=== PATIENT | male | born 1965 | race Caucasian/White ===

== ENCOUNTER 2016-06-04 09:48 | Outpatient (CLI) | payer OTHER | END 2016-06-04 09:49 | disposition home or self-care (01) | DX: G47.33 Obstructive sleep apnea (adult) (pediatric) (principal) ==

== ENCOUNTER 2016-08-20 08:51 | Outpatient (CLI) | payer OTHER | END 2016-08-20 08:52 | disposition home or self-care (01) | DX: G47.33 Obstructive sleep apnea (adult) (pediatric) (principal) ==

== ENCOUNTER 2017-07-22 15:25 | Outpatient (CLI) | payer BC | END 2017-07-22 15:26 | disposition home or self-care (01) | LOC: SC 15:25 | PROVIDERS: ATTEND Nurse Practitioner Family | DX: G47.33 Obstructive sleep apnea (adult) (pediatric) (principal) | CPT/HCPCS: 99212; 99214 ==

== ENCOUNTER 2018-05-23 08:53 | Outpatient (CLI) | payer BC | END 2018-05-23 08:54 | disposition home or self-care (01) | LOC: RT 08:53 | PROVIDERS: ATTEND Internal Medicine Gastroenterology | DX: E11.9 Type 2 diabetes mellitus without complications (principal); I10 Essential (primary) hypertension | CPT/HCPCS: 93005 ==

== ENCOUNTER 2018-06-18 08:29 | Outpatient (CLI) | payer BC ==
--- NOTE | 2018-06-18 12:06 | XRAY Report ---
Reason: RIGHT KNEE,SWELLING PAIN Procedure Date: 06/18/2018 Accession Number: [id number] / [id number] Procedure: XR - Knee 3 View RT CPT Code: FULL RESULT: EXAM: RIGHT KNEE RADIOGRAPHY EXAM DATE: 06/18/2018 08:44 AM. CLINICAL HISTORY: Right knee, swelling pain. COMPARISON: ANKLE 3 VIEW BILAT 10/26/2015 4:03 PM. TECHNIQUE: 3 views. FINDINGS: Bones: Normal. No fractures or bone lesions. Joints: There are mild degenerative changes predominantly of the medial weightbearing compartment. No joint effusion or dislocation. Soft Tissues: Soft tissue swelling is noticed anterior to the patella. IMPRESSION: Mild degenerative changes. RADIA
== END 2018-06-18 08:30 | disposition home or self-care (01) ==
LOC: DI 08:29
PROVIDERS: ATTEND Physician Assistant Medical
DX: M17.11 Unilateral primary osteoarthritis, right knee (principal); M25.461 Effusion, right knee

== ENCOUNTER 2018-12-03 16:15 | Outpatient (CLI) | payer BC ==
--- NOTE | 2018-12-03 17:49 | SLEEP CARE CONSULTATION ---
Information from patient questionnaire entered by Luna Mckay. I have reviewed and concur with the information entered by Luna Mckay. This document represents the service I personally performed and the decisions made by me, Dulce Reed, RN, MSN, INFORMATION RECEPTIONIST. History of Present Illness Previous diagnosis: Very Severe, Obstructive Sleep Apnea-Hypopnea Syndrome AHI: 74.2 Reason for CPAP/BiPAP follow up: annual Equipment type: CPAP Equipment obtained from: [facility] (having problems getting supplies and would like to transfer) Mask style: Nasal pillows Mask brand: Resmed Backup mask available: No Last cushion change: 3 months CPAP Compliance Data - Data Reviewed with Patient Average duration of nightly device use: 8.2 Compliance rate %: 100 (180) Current pressure setting (cmH2O): 10-15 Average residual AHI: 0.3 Average large leak: 1.4 liters/minute Subjective Patient concerns: reports: condensation in mask/hose (rare), nasal congestion (reports runny nose for about a half hour after using CPAP ). denies: aerophagia, mask discomfort, air blowing in eyes, mask leak noise, dry mouth, nose, throat, epistaxis Observed to snore while using device: No On therapy, patient: reports: sleeping better, awakening more refreshed, being more awake and alert during the day, more rested overall. denies: drowsiness while driving Initial [place] Sleepiness Scale score: 18 Current [place] Sleepiness Scale score: 2 Allergies and Home Medications Known drug allergies: No Home medication list reviewed: Yes Allergy and home medication list: Lisinopril 40mg tab one daily Nasacort Allergy 24HR 55MCG/ACT One stray intranasally daily Chlorthalidone 25mg tab one daily QVAR 40MCG/ACT One puff inhaled daily ProAir HFA 108 (90 base) Two puffs every 4-6h PRN Montelukast Sodium 10mg tab one daily Clotrimzole 10mg One frieda five times daily PRN Loratadine 10mg tab one daily Atorvastatin Calcium 10mg tab one daily Physical Exam Blood Pressure: 120/80 Cuff size: long Heart Rate: 78 O2 Saturation: 98 Height: 5 ft 7 in Weight (kg): 123.377 kg Body Mass Index: 42.5 BMI Classification: Class 3 Impression and Plan 1. Obstructive Sleep Apnea-Hypopnea Syndrome, very severe, with good treatment compliance and good apnea control. On CPAP therapy, the patient has better sleep quality and is more rested overall. For his rhinorrhea after use, I advised him to raise the humidity as this could be a response from dryness of nose. He can also reduce heat of hose as shown on sample device and adjust as needed with rationale discussed. For his supply concerns, I informed him that he could transfer to new supply company. I will have my damage prevention coordinator inform him of his options. A DWO transfer prescription will be completed. If further supply problems he can transfer again. I praised his weight loss. I discussed how continued significant weight loss can reduce his CPAP pressure requirements. I showed him how he is using the highest of his auto pressure range and thus present range should accommodate some weight loss. I discussed symptom to report for further pressure adjustment . We looked at the BMI chart and discussed his goals for weight loss for improved health and reduced arthritic pain. He is also aware how continued weight loss can reduce his blood pressure and hopes to reduce his medication when goal weight obtained. Patient's apnea severity and rationale for treatment to reduce apnea, improve sleep quality and reduce cardiovascular and cerebrovascular events was reviewed. I also reviewed the benefit of consistent device use of CPAP for hypertension, gastric reflux, depression. He is concerned about his brother out of state having apnea and means to get a CPAP device. I gave him a [facility] Snoring and sleep apnea pamphlet to send to him of how to reach out to his provider for care. I also explained that most insurances will cover most of CPAP cost, dependent upon deductible. Some CPAP companies used to have assistance programs for those without insurance but I have not researched as no need last few years. * Continue CPAP pressure at 10-15 cmH2O * Change humidity / heated hose * Continue weight loss. * Transfer to new DME * Notify me if snoring with mask or feeling that the pressure is too much or too little * Return for follow up in 1 year, or sooner if concerns arise I spent 100% of this 35 minute visit face to face with the patient with greater than 50% of this was spent time counseling the patient and coordination of care.
[2018-12-03 17:50] VITALS: BP 120/80
== END 2018-12-03 16:16 | disposition home or self-care (01) ==
LOC: SC 16:15
PROVIDERS: ATTEND Nurse Practitioner Family
DX: G47.33 Obstructive sleep apnea (adult) (pediatric) (principal)
CPT/HCPCS: 99212; 99214

== ENCOUNTER 2019-12-16 09:12 | Outpatient (CLI) | payer OTHER ==
--- NOTE | 2019-12-16 09:43 | SLEEP CARE CONSULTATION ---
Information from patient questionnaire entered by Luna Mckay. I have reviewed and concur with the information entered by Luna Mckay. This document represents the service I personally performed and the decisions made by , Adriana Alarcon ARNP. History of Present Illness Service Date and Time: 12/16/2019911 Previous diagnosis: Very Severe, Obstructive Sleep Apnea-Hypopnea Syndrome AHI: 74.2 (in 2013) Reason for follow up: annual (last seen 2018) Equipment type: CPAP Equipment obtained from: [facility] (getting supplies as needed) Mask style: Nasal pillows Mask brand: Resmed Backup mask available: No (save one using now when gets new supplies) Last cushion change: 2 weeks ago Prior sleep studies: Yes Year and [facility] Type of Sleep Study: Polysomnography HPI additional information: JANELLE CULLEN was diagnosed to have very severe, AHI 74.2 in 2013, obstructive sleep apnea-hypopnea syndrome and returned today for CPAP therapy annual follow-up. CPAP Compliance Data - Data Reviewed with Patient Average duration of nightly device use: 8.5 Compliance rate %: 100 (180 days) Current pressure setting (cmH2O): 10-15 Humidity settin Average residual AHI: 0.2 Subjective Patient concerns: reports: nasal congestion (has seasonal allergies in the morning has some congestion), dry mouth, nose, throat (sometimes, but not really bad), other (Broken main power). denies: aerophagia, mask discomfort, air blowing in eyes, mask leak noise, condensation in mask/hose, epistaxis Observed to snore while using device: No Current pressure setting perceived as: comfortable On therapy, patient: reports: sleeping better, awakening more refreshed, being more awake and alert during the day, more rested overall. denies: drowsiness while driving Initial [place] Sleepiness Scale score: 18 (in 2013) Current [place] Sleepiness Scale score: 5 Allergies and Home Medications Drug allergies reviewed: Yes (NKDA) Home medication list reviewed: Yes (med changes as listed) Allergy and home medication list: cetirizine 10 mg daily for allergies tizanidine 2 mg, prn prazosin 2 tablet nightly for nightmares, last 6 months Review of Systems Review of systems same as previous: Yes (no changes) Cardiovascular: reports: high blood pressure Physical Exam Heart Rate: 81 O2 Saturation: 96 Height: 5 ft 7 in Weight: 259 lb 9.6 oz Body Mass Index: 40.6 BMI Classification: Morbidly Obese Impression and Plan 1. Obstructive Sleep Apnea-Hypopnea Syndrome, very severe, with good treatment compliance and good apnea control. On CPAP therapy, there is improved sleep quality and feels more rested overall. Patient's apnea severity and rationale for treatment to reduce apnea, improve sleep quality and reduce cardiovascular and cerebrovascular events was reviewed. I also reviewed the benefit of consistent device use of CPAP for hypertension, gastric reflux, and depression. Patient states the power button on his machine is not working, he has to unplug his device to turn it off. He states at his last annual visit he was told he could update his machine in a year. His insurance is changing at the end of the month because he lost his job due to the pandemic and he would like to use up his benefits before that happens. We discussed that he would need to come in for another compliance follow up on the new machine to make sure it is working appropriately, he voiced understanding and agreement with plan of care. Continue auto CPAP pressure at 10-15 cm H2O. Notify me if snoring with the mask or feeling that the pressure is too much or too little. Attempt to lose weight. Update CPAP machine Return for follow-up in 1-2 months, or sooner if concerns arise. Visit Type: In Office Time Spent with Patient (minutes): 20 Provider Statement: I spent 100% of the Face to Face Visit with the patient with greater than 50% spent counseling the patient and coordination of care.
== END 2019-12-16 09:13 | disposition home or self-care (01) ==
LOC: SC 09:12
PROVIDERS: ATTEND Nurse Practitioner Family
DX: G47.33 Obstructive sleep apnea (adult) (pediatric) (principal); E66.01 Morbid (severe) obesity due to excess calories; Z68.41 Body mass index [BMI] 40.0-44.9, adult
CPT/HCPCS: 99212; 99213

== ENCOUNTER 2022-03-02 10:38 | Day surgery (SDC) | payer OTHER ==
--- NOTE | 2022-03-02 11:13 | ANESTHESIA ---
Pre-Anesthesia VS, & Labs Height: 5 ft 7 in Weight (kg): 119.2 kg Body Mass Index: 41.1 BMI Classification: Morbidly Obese - NPO >8 hours - Lab Results Lab results reviewed: Yes - Diagnosis hx colon polyps (Kelsey Argueta) - Procedure colonoscopy (Kelsey Argueta) Vital Signs: Temp Pulse Resp BP Pulse Ox O2 Flow Rate 36.7 C 86 20 154/92 H 96 03/02/22 10:57 03/02/22 10:57 03/02/22 10:57 03/02/22 10:57 03/02/22 10:57 Home Medications and Allergies lisinopriL [Lisinopril] 40 mg PO DAILY 06/20/13 Beclomethasone 80 Mcg [Qvar 80] 1 inh INH DAILY PRN 02/16/16 Montelukast Sodium 10 mg PO DAILY 02/16/16 Aspirin [Adult Aspirin] 81 mg PO DAILY 05/22/18 Atorvastatin Calcium 10 mg PO QPM 05/22/18 Chlorthalidone 25 mg PO DAILY 05/22/18 Cholecalciferol (Vitamin D3) [Vitamin D] 2,000 unit PO DAILY 05/22/18 Ibuprofen 400 - 600 mg PO TID 05/22/18 [place]-3/Dha/Epa/Fish Oil [Fish Oil 1,000 mg Softgel] 1 each PO BID 05/22/18 Allergies/Adverse Reactions: Allergies Allergy/AdvReac Type Severity Reaction Status Date / Time No Known Drug Allergies Allergy Verified 01/20/13 13:38 Anes History & Medical History - Anesthetic History Anesthesia Complications: reports: No previous complications Family history of Anesthesia Complications: Denies Family history of Malignant Hyperthermia: Denies - Medical History Cardiovascular: reports: Hypertension, High cholesterol Pulmonary: reports: Asthma, Sleep apnea, CPAP use Gastrointestinal: reports: Colon polyps, Other Urinary: reports: None Neuro: reports: None Musculoskeletal: reports: Chronic back pain Endocrine/Autoimmune: reports: None Blood Disorders: reports: None Skin: reports: None Smoking Status: Current some day smoker History of Cancer?: No - Surgical History General: reports: Colonoscopy Eyes Ears Nose Throat (EENT): reports: Tonsil/Adenoidectomy Exam General: Alert, Oriented x3, Cooperative Dental: WNL Mouth Openin Fingerbreadth Neck Mobility: Normal Mallampati classification: II Thyromental Distance: 4-6 cm Respiratory: Lungs clear, Normal breath sounds, No respiratory distress Cardiovascular: Regular rate Neurological: Normal speech Mental/Cognitive Status: Alert/Oriented X3, Normal for patient Cognitive Status: Within normal limits Plan Anesthesia Type: Total IV Consent for Procedure(s) Verified and Reviewed: Yes Code Status: Attempt Resuscitation ASA classification: 3-Severe systemic disease Is this case an emergency?: No
[2022-03-02] MEDS ORDERED: LACTATED RINGERS 1,000 ML IV ONE ×2 (11:17→13:18)
[2022-03-02] MEDS ORDERED: MIDAZOLAM 2 MG/2 ML VIAL ONE (11:34)
[2022-03-02] MEDS ORDERED: PROPOFOL 500 MG/50 ML 500 MG/50 ML VIAL ONE (11:35)
[2022-03-02] MEDS ORDERED: KETAMINE 500 MG/10 ML VIAL ONE (12:27)
--- NOTE | 2022-03-02 12:37 | HISTORY & PHYSICAL EXAMINATION ---
Chief Complaint - Chief Complaint Chief Complaint: here for colon cancer screening History of Present Illness - History Obtained From Records Reviewed: yes History obtained from: pt Exam Limitations: none - History of Present Illness HPI Comment/Other: history large colon polyps. no gi problems. here for surveillance colonoscopy History - Past Medical History Cardiovascular: reports: Hypertension, High cholesterol Respiratory: reports: Asthma, Sleep apnea, CPAP use Neuro: reports: None Endocrine/Autoimmune: reports: None GI: reports: Colon polyps, Other : reports: None HEENT: reports: Chronic vision loss, Other Psych: reports: Anxiety, Post traumatic stress disorder, Claustrophobia Musculoskeletal: reports: Chronic back pain Derm: reports: None MRSA Hx?: No - Past Surgical History General: reports: Colonoscopy HEENT: reports: Tonsil/Adenoidectomy - POLST Patient has POLST: No Meds/Allgy - Home Medications Home Medications: Ambulatory Orders Medication Instructions Recorded Confirmed Albuterol [Ventolin Hfa] 2 puffs INH Q4H PRN #1 inhaler 06/20/13 03/02/22 lisinopriL [Lisinopril] 40 mg PO DAILY 06/20/13 03/02/22 Beclomethasone 80 Mcg [Qvar 80] 1 inh INH DAILY PRN 02/16/16 03/02/22 Montelukast Sodium 10 mg PO DAILY 02/16/16 03/02/22 Aspirin [Adult Aspirin] 81 mg PO DAILY 05/22/18 03/02/22 Atorvastatin Calcium 10 mg PO QPM 05/22/18 03/02/22 Chlorthalidone 25 mg PO DAILY 05/22/18 03/02/22 Cholecalciferol (Vitamin D3) 2,000 unit PO DAILY 05/22/18 03/02/22 [Vitamin D] Ibuprofen 400 - 600 mg PO TID 05/22/18 03/02/22 [place]-3/Dha/Epa/Fish Oil [Fish Oil 1 each PO BID 05/22/18 03/02/22 1,000 mg Softgel] - Allergies Allergies/Adverse Reactions: Allergies Allergy/AdvReac Type Severity Reaction Status Date / Time No Known Drug Allergies Allergy Verified 01/20/13 13:38 Review of Systems - Other Findings Other Findings: 10 pt ros as above otherwise unremarkable Exam - Vital Signs Reviewed Vital Signs: Yes Vital Signs: Vital Signs x48h Temp Pulse Resp BP Pulse Ox 03/02/22 10:57 36.7 C 86 20 154/92 H 96 - Physical Exam General Appearance: positive: No acute distress, Alert Eyes Bilateral: positive: PERRL, EOMI ENT: positive: No signs of dehydration Neck: positive: No JVD, Trachea midline Respiratory: positive: No respiratory distress, Breath sounds nml Cardiovascular: positive: Regular rate & rhythm Abdomen: positive: Non-tender, No distention Neurologic/Psychiatric: positive: Oriented x3 Conclusion/Plan - Problem List (1) History of adenomatous polyp of colon Conclusion/Plan: plan colonoscopy. parq held and consent obtained - Lab Results Lab results reviewed: Yes
[2022-03-02] MEDS ORDERED: PROPOFOL 200 MG/20 ML VIAL IVP ONE ×2 (12:41→12:59)
[2022-03-02 13:40] VITALS: BP 141/91
--- NOTE | 2022-03-02 13:49 | ANESTHESIA POST OP EVALUATION ---
Anesthesia Post Eval - Post Anesthesia Eval Vitals: Last Vital Signs Temp 36.8 C 03/02/22 13:39 Pulse 71 03/02/22 13:39 Resp 16 03/02/22 13:39 BP 141/91 H 03/02/22 13:39 Pulse Ox 95 03/02/22 13:39 O2 Flow Rate CV Function Including HR & BP: Stable Pain Control: Satisfactory Nausea & Vomiting: Negative Mental Status: Baseline Respiratory Status: Airway Patent Hydration Status: Satisfactory Anesthesia Complications: None
== END 2022-03-02 10:39 | disposition home or self-care (01) ==
LOC: SDS 10:38
PROVIDERS: ATTEND Surgery
PROC: 0DBP8ZX Excision of Rectum, Via Natural or Artificial Opening Endoscopic, Diagnostic (ICD-10-PCS; 2022-03-02)
PROC: 0DBM8ZX Excision of Descending Colon, Via Natural or Artificial Opening Endoscopic, Diagnostic (ICD-10-PCS; 2022-03-02)
PROC: 0DBK8ZX Excision of Ascending Colon, Via Natural or Artificial Opening Endoscopic, Diagnostic (ICD-10-PCS; principal; 2022-03-02 12:15)
DX: Z12.11 Encounter for screening for malignant neoplasm of colon (principal); K62.1 Rectal polyp; K57.30 Diverticulosis of large intestine without perforation or abscess without bleeding; D12.2 Benign neoplasm of ascending colon; D17.79 Benign lipomatous neoplasm of other sites; I10 Essential (primary) hypertension; J45.909 Unspecified asthma, uncomplicated; G47.30 Sleep apnea, unspecified; E66.01 Morbid (severe) obesity due to excess calories; Z68.41 Body mass index [BMI] 40.0-44.9, adult
CPT/HCPCS: 45380; 45385; J7120

== ENCOUNTER 2022-05-15 14:48 | Outpatient (CLI) | payer OTHER ==
[2022-05-15 15:18] VITALS: BP 138/90
--- NOTE | 2022-05-15 15:18 | SLEEP CARE CONSULTATION ---
Information from patient questionnaire entered by Danica Leary. I have reviewed and concur with the information entered by Danica Leary. This document represents the service I personally performed and the decisions made by me, Adriana Alarcon ARNP. History of Present Illness Service Date and Time: 05/15/2022 1448 Previous diagnosis: Very Severe, Obstructive Sleep Apnea-Hypopnea Syndrome AHI: 74.2 (in 2013) Reason for follow up: annual (LAST SEEN 11/2019) Equipment type: CPAP (RESMED Airsense 10; s/u 05/2015; NEED SD CARD FOR DOWNLOAD) Equipment obtained from: [facility] (getting supplies as needed) Mask style: Nasal pillows Backup mask available: No (will keep old mask when replaced) Last cushion change: 3 weeks Prior sleep studies: Yes Year and Where: 2013 - [facility] Sleep HPI additional information: JANELLE CULLEN was diagnosed to have very severe, AHI 74.2, obstructive sleep apnea-hypopnea syndrome and returned today for CPAP therapy annual follow-up. Sleep Study - Results Prior sleep studies: Yes [facility] CP[facility] Compliance Data - Data Reviewed with Patient Average duration of nightly device use: 7 hours 43 minutes Compliance rate %: 98 (180/180 days used; 02/02/2021-07/31/2021) Current pressure setting (cmH2O): 10-15 Average residual AHI: 0.2 Central apnea: 0.0 Obstructive apnea: 0.2 Subjective Patient concerns: denies: aerophagia, mask discomfort, air blowing in eyes, mask leak noise, condensation in mask/hose, nasal congestion, dry mouth, nose, throat, epistaxis Observed to snore while using device: No Current pressure setting perceived as: comfortable On therapy, patient: reports: sleeping better, awakening more refreshed, being more awake and alert during the day, more rested overall. denies: drowsiness while driving Initial [place] Sleepiness Scale score: 18 (in 2013) Current [place] Sleepiness Scale score: 4 (05/15/22) Allergies and Home Medications Drug allergies reviewed: Yes (NKDA) Home medication list reviewed: Yes (Prazosin 5mg; Amlodipine 5 mg) Review of Systems Review of systems same as previous: Yes (night terrors, taking prazosin now) Physical Exam Vital signs obtained and entered by: DANICA Damon MA Blood Pressure: 138/90 (LEFT ARM) Cuff size: regular Heart Rate: 77 O2 Saturation: 98 Height: 5 ft 7 in Weight: 274 lb 6.4 oz Body Mass Index: 43.0 BMI Classification: Morbidly Obese Impression and Plan 1. Obstructive Sleep Apnea-Hypopnea Syndrome, very severe, with good treatment compliance and good apnea control. On CPAP therapy, the patient has better sleep quality and is more rested overall. Janelle will bring in his SD card tomorrow to get a more current therapy report. Patient has significant improvement of their sleep apnea and are satisfied with current CPAP therapy. Patient has a ResMed Airsense 10 that is giving him a message that the motor is wearing out. It was last update 05/2015. The patients CPAP is over 5 years old and of reasonable use. Thus, the CPAP will be updated. A DWO prescription will be made. Compliance guidelines for new device and follow up discussed. Patient's apnea severity and rationale for treatment to reduce apnea, improve sleep quality and reduce cardiovascular and cerebrovascular events was reviewed. Patient denies problems with oral dryness, nasal congestion, epistaxis, skin irritation or aerophagia. I also reviewed the benefit of consistent device use of CPAP for hypertension, gastric reflux and depression. 2. Obesity, unspecified. Currently patients BMI is 43.0. Obesity increases the risk of apnea, CPAP pressure requirements and overall health risks especially cardiovascular and diabetes. Thus patient is advised to lose weight. * Continue auto CPAP pressure at 10-15 cmH2O * Update supplies * Notify me if snoring with mask or feeling that the pressure is too much or too little * Attempt to lose weight * Call this office if any problems using CPAP * Return for follow up one month after obtaining new device, or sooner if concerns arise Counseling Topics: Spare mask, Weight loss health impact Prescriptions: Auto CPAP (update machine), Device supplies Visit Type: In Office Time Spent with Patient (minutes): 20 Provider Statement: I spent 100% of the Face to Face Visit with the patient with greater than 50% spent counseling the patient and coordination of care.
== END 2022-05-15 14:49 | disposition home or self-care (01) ==
LOC: SC 14:48
PROVIDERS: ATTEND Nurse Practitioner Family
DX: G47.33 Obstructive sleep apnea (adult) (pediatric) (principal); E66.01 Morbid (severe) obesity due to excess calories; Z68.41 Body mass index [BMI] 40.0-44.9, adult
CPT/HCPCS: 99212; 99213

== ENCOUNTER 2022-09-05 15:47 | Outpatient (CLI) | payer OTHER ==
--- NOTE | 2022-09-05 15:59 | Sleep Patient Instructions ---
Sleep Center Visit Summary - Patient Visit Information Reason for Visit: First compliance with new device follow up for CPAP therapy - Patient Instructions Additional Instructions: You were here for follow up of CPAP therapy. You will be continued on CPAP therapy with pressure at 10 cmH2O. You should follow up with sleep care in 12 months. You may contact us sooner for any questions or concerns. - Clinic Information Contact: [facility] [address] [place] [id number] [email or web address] T: [phone]
--- NOTE | 2022-09-05 16:10 | SLEEP CARE CONSULTATION ---
Information from patient questionnaire entered by Alice Leary. I have reviewed and concur with the information entered by Alice Leary. This document represents the service I personally performed and the decisions made by me, Adriana Alarcon ARNP. History of Present Illness Service Date and Time: 09/05/2022 1547 Previous diagnosis: Very Severe, Obstructive Sleep Apnea-Hypopnea Syndrome AHI: 74.2 (in 2013) Reason for follow up: first compliance after device update Equipment type: CPAP (RESMED Airsense 11; s/u 04/2022; NEED SD CARD FOR DOWNLOAD) Equipment obtained from: [employer] (getting supplies as needed) Mask style: Nasal pillows Backup mask available: No (will keep old mask when replaced) Last cushion change: 2 weeks Prior sleep studies: Yes Year and Where: 2013 - [facility] HPI additional information: JANELLE CULLEN was diagnosed to have very severe, AHI 74.2, obstructive sleep apnea-hypopnea syndrome and returned today for CPAP therapy first compliance after updating device follow-up. Sleep Study - Results Prior sleep studies: Yes Year and Where: 2013 - [facility] CPAP Compliance Data - Data Reviewed with Patient Average duration of nightly device use: 8 hours 23 minutes Compliance rate %: 99 (90/90 days used) Current pressure setting (cmH2O): 10 Average residual AHI: 0.8 Central apnea: 0.1 Obstructive apnea: 0.4 Hypopnea: 0.3 Average large leak: 1.7 L/min Subjective Patient concerns: denies: aerophagia, mask discomfort, air blowing in eyes, mask leak noise, condensation in mask/hose, nasal congestion, dry mouth, nose, throat, epistaxis Observed to snore while using device: Yes (at first with new machine) Current pressure setting perceived as: comfortable On therapy, patient: reports: sleeping better, awakening more refreshed, being more awake and alert during the day, more rested overall. denies: drowsiness while driving Initial [place] Sleepiness Scale score: 18 (in 2013) Current [place] Sleepiness Scale score: 1 (09/05/22) Allergies and Home Medications Known drug allergies: No Drug allergies reviewed: Yes Home medication list reviewed: Yes (no changes) Allergy and home medication list: Allergies No Known Drug Allergies Allergy (Verified 09/04/22 14:59) Review of Systems Review of systems same as previous: Yes (no changes) Physical Exam Vital signs obtained and entered by: ALICE Damon MA Blood Pressure: 130/82 (LEFT ARM) Cuff size: long Heart Rate: 73 O2 Saturation: 96 Height: 5 ft 7 in Weight: 276 lb Body Mass Index: 43.2 BMI Classification: Morbidly Obese Impression and Plan 1. Obstructive Sleep Apnea-Hypopnea Syndrome, very severe, with good treatment compliance and good apnea control. On CPAP therapy, the patient has better sleep quality and is more rested overall. Patient has significant improvement of their sleep apnea and is satisfied with current CPAP therapy. Patient denies problems with oral dryness, nasal congestion, epistaxis, skin irritation or aerophagia. Patient's apnea severity and rationale for treatment to reduce apnea, improve sleep quality and reduce cardiovascular and cerebrovascular events was reviewed. I also reviewed the benefit of consistent device use of CPAP for hypertension, gastric reflux and depression. Patient states he is moving to [place] in October. We discussed what he needs to do to transfer his care down there once he has established in the area. He voiced understanding and agreement to plan of care. 2. Obesity, unspecified. Currently patients BMI is 43.2. Obesity increases the risk of apnea, CPAP pressure requirements and overall health risks especially cardiovascular and diabetes. Thus patient is advised to lose weight. * Continue CPAP pressure at 10 cmH2O * Notify me if snoring with mask or feeling that the pressure is too much or too little * Attempt to lose weight * Call this office if any problems using CPAP * Return for follow up in 1 year, or sooner if concerns arise Counseling Topics: Weight loss health impact Visit Type: In Office Time Spent with Patient (minutes): 13 Provider Statement: I spent 100% of the Face to Face Visit with the patient with greater than 50% spent counseling the patient and coordination of care.
[2022-09-05 16:11] VITALS: BP 130/82
== END 2022-09-05 15:48 | disposition home or self-care (01) ==
LOC: SC 15:47
PROVIDERS: ATTEND Nurse Practitioner Family
DX: G47.33 Obstructive sleep apnea (adult) (pediatric) (principal); E66.01 Morbid (severe) obesity due to excess calories; Z68.41 Body mass index [BMI] 40.0-44.9, adult
CPT/HCPCS: 99212